=== PATIENT | male | born 1985 | race Two or more races ===

== ENCOUNTER 2020-03-11 15:47 | Emergency (ER) | payer MEDICAID ==
[~2020-03-11] VITALS: Ht 167.6 cm; Wt 72.7 kg
[2020-03-11] MEDS ORDERED: OMEG-135 PO (16:00)
[2020-03-11] MEDS ORDERED: BENZ1TAB10 PO (16:00)
[2020-03-11] MEDS ORDERED: LISI-662 PO (16:00)
[2020-03-11] MEDS ORDERED: OLAN10TA3 PO (16:00)
[2020-03-11] MEDS: LORazepam 2 MG/ML VIAL IM ONE ×2 (18:47→18:54)
[2020-03-11 18:58] VITALS: BP 147/89
== END 2020-03-11 19:00 | disposition home or self-care (01) ==
LOC: EMS 15:54
DX: F20.9 Schizophrenia, unspecified (principal); I10 Essential (primary) hypertension; F12.90 Cannabis use, unspecified, uncomplicated; Z79.899 Other long term (current) drug therapy
CPT/HCPCS: 96372; 99284; J2060

== ENCOUNTER 2025-03-15 19:57 | Emergency (ER) | payer MEDICAID, OTHER ==
[~2025-03-15] VITALS: Ht 172.7 cm; Wt 84.0 kg
[~2025-03-15 19:57] MED LIST: BENZ-247 PO; LISI-894 PO; OLAN10TA74 PO; OMEG-135 PO
[2025-03-15] MEDS: CLINDAMYCIN PHOS 150 MG/ML 4 ML VIAL IM ONE (22:18)
[2025-03-15] MEDS: PERTUSS(ACELL),DIPH,TET/PF 0.5 ML SYRINGE [ADULT] IM. ONE (22:19)
[2025-03-15 22:38] VITALS: BP 132/74; PULSE 75; RESP 18; TEMP 97.3; O2SAT 96
== END 2025-03-15 22:40 ==
LOC: EMS 19:57
DX: S61.411A Laceration without foreign body of right hand, initial encounter (principal); I10 Essential (primary) hypertension; F20.9 Schizophrenia, unspecified; F12.90 Cannabis use, unspecified, uncomplicated; Z79.899 Other long term (current) drug therapy; W25.XXXA Contact with sharp glass, initial encounter; Y93.89 Activity, other specified; Y92.89 Other specified places as the place of occurrence of the external cause; Y99.8 Other external cause status
CPT/HCPCS: 99284; 90715; 90471; 96372; J3490